=== PATIENT | male | born 1995 | race African-American/Black ===

== ENCOUNTER 2023-08-24 23:55 | Emergency (ER) | payer OTHER ==
[2023-08-25] MEDS ORDERED: Ketorolac Tromethamine 30 MG (1 mL) VIAL ONE (00:21)
[2023-08-25 01:10] LABS: Influenza A by NAA Not Detected (NotDetected); Influenza B by NAA Not Detected (NotDetected); SARS-CoV-2 NAA Rapid Test Not Detected (NotDetected)
== END 2023-08-25 02:15 ==
LOC: NAV ERS 23:55 → EEVIPCON 23:55 → NAV ERS 08-25 02:15
DX: M94.0 Chondrocostal junction syndrome [Tietze] (principal); B34.9 Viral infection, unspecified; I10 Essential (primary) hypertension; J45.909 Unspecified asthma, uncomplicated; Z79.899 Other long term (current) drug therapy
CPT/HCPCS: 96374; J1885